=== PATIENT | male | born 2005 | race Caucasian/White ===

== ENCOUNTER 2025-03-20 00:34 | Inpatient (IN) | payer OTHER ==
[2025-03-20] MEDS ORDERED: Ondansetron PF 4 MG/2 ML Vial IVP PRN (01:52)
[2025-03-20] MEDS ORDERED: hydrALAZINE 20 MG/ML VIAL SLOW IVP PRN (01:52)
[2025-03-20 04:08] VITALS: BMI 22.7
[2025-03-20 06:03] LABS: #Basophils 0.08 10x3/uL (0.0-0.2); #Eosinophils 0.23 10x3/uL (0.0-0.7); #Monocytes 0.47 10x3/uL (0.11-0.59); #Neutrophils 1.91 10x3/uL (1.40-6.50); %Basophils 1.7 % (0.0-1.0); %Eosinophils 4.9 % (0.0-10.0); %Lymphocytes 42.8 % (21.0-51.0); %Monocytes 10.0 % (0.0-10.0); %Neutrophils 40.6 % (42.0-75.0); Hematocrit 34.6 % (42.0-52.0); Hemoglobin 11.0 g/dL (14.0-18.0); Mean Corpuscular Hemoglobin 26.5 pg (27.0-31.0); Mean Corpuscular Volume 83.4 fL (78.0-98.0); Platelet Count 231 10x3/uL (130-400); Red Blood Cell (RBC) Count 4.15 mill/uL (4.70-6.10); White Blood Cell (WBC) Count 4.70 10x3/uL (4.8-10.8)
[2025-03-20 06:30] LABS: Anion Gap 11 mmol/L (10-20); BUN (Urea Nitrogen) 11 mg/dL (8.9-20.6); Calc. Creatinine Clearance 178 mL/min (70-130); Calcium 9.4 mg/dL (7.8-10.44); Carbon Dioxide 25 mmol/L (22-29); Chloride 105 mmol/L (98-107); Glucose 86 mg/dL (70-105); Potassium 4.0 mmol/L (3.5-5.1); Sodium 137 mmol/L (136-145)
[2025-03-20 12:54] VITALS: BP 114/55; TEMP 98.5
[2025-03-21] MEDS ORDERED: Haloperidol 5 MG TAB PO SCH (09:00)
[2025-03-21] MEDS ORDERED: Sertraline 100 MG TAB PO SCH (09:00)
[2025-03-23] MEDS ORDERED: FLU (Fluarix Triv) 25-26 (6MOS UP)/PF 45 MCG/0.5 ML Syringe IM ONE (09:00)
== END 2025-03-20 13:40 | DRG 395 ==
LOC: ERS 00:34 → EEVIPCON 00:34 → SURG A 03:39 → OBSVTOIN 03:42
PROVIDERS: ADMIT Surgery; ATTEND Surgery
DX: T18.4XXA Foreign body in colon, initial encounter (principal); Z65.2 Problems related to release from prison; W44.8XXA Other foreign body entering into or through a natural orifice, initial encounter
CPT/HCPCS: 36415; 74018; 74022; 80048; 85025; 99284; J7120

== ENCOUNTER 2025-04-05 00:44 | Emergency (ER) | payer OTHER ==
[2025-04-05] MEDS ORDERED: Acetaminophen 500 MG TAB ONE (02:13)
[2025-04-05 04:48] LABS: #Basophils 0.05 10x3/uL (0.0-0.2); #Eosinophils 0.11 10x3/uL (0.0-0.7); #Monocytes 0.48 10x3/uL (0.11-0.59); #Neutrophils 3.30 10x3/uL (1.40-6.50); %Basophils 0.8 % (0.0-1.0); %Eosinophils 1.7 % (0.0-10.0); %Lymphocytes 40.5 % (21.0-51.0); %Monocytes 7.2 % (0.0-10.0); %Neutrophils 49.6 % (42.0-75.0); Hematocrit 36.6 % (42.0-52.0); Hemoglobin 12.3 g/dL (14.0-18.0); Mean Corpuscular Hemoglobin 26.7 pg (27.0-31.0); Mean Corpuscular Volume 79.4 fL (78.0-98.0); Platelet Count 260 10x3/uL (130-400); Red Blood Cell (RBC) Count 4.61 mill/uL (4.70-6.10); White Blood Cell (WBC) Count 6.64 10x3/uL (4.8-10.8)
[2025-04-05 05:09] LABS: INR-International Normal Ratio 1.0; PTT 27.9 sec (22.9-36.1); Prothrombin Time 13.6 sec (12.0-14.7)
[2025-04-05 05:10] LABS: ALT (SGPT) 18 U/L (Less than 45); AST (SGOT) 31 U/L (11-34); Albumin 4.5 g/dL (3.1-4.5); Alkaline Phosphatase 58 U/L (40-110); Anion Gap 16 mmol/L (10-20); BUN (Urea Nitrogen) 13 mg/dL (8.9-20.6); Bilirubin, Total 0.5 mg/dL (0.3-1.2); Calc. Creatinine Clearance 0 mL/min (70-130); Calcium 9.5 mg/dL (7.8-10.44); Carbon Dioxide 23 mmol/L (22-29); Chloride 105 mmol/L (98-107); Globulin 3.0 g/dL (2.4-3.5); Glucose 84 mg/dL (70-105); Potassium 4.0 mmol/L (3.5-5.1); Sodium 140 mmol/L (136-145)
== END 2025-04-05 07:14 ==
LOC: EEVIPCON 00:44 → ERS 00:44
DX: S06.6X0A Traumatic subarachnoid hemorrhage without loss of consciousness, initial encounter (principal); S00.83XA Contusion of other part of head, initial encounter; T18.4XXA Foreign body in colon, initial encounter; Y00.XXXA Assault by blunt object, initial encounter; Y92.149 Unspecified place in prison as the place of occurrence of the external cause
CPT/HCPCS: 70450; 80053; 85025; 85610; 85730

== ENCOUNTER 2025-04-06 22:15 | Emergency (ER) | payer OTHER | END 2025-04-06 23:51 | LOC: ERS 22:15 → EEVIPCON 22:15 → ERS 23:51 | DX: T18.2XXA Foreign body in stomach, initial encounter (principal) | CPT/HCPCS: 71045; 74018 ==